=== PATIENT | female | born 1965 | race Caucasian/White ===

== ENCOUNTER 2020-12-28 16:00 | Emergency (ER) | payer OTHER ==
[2020-12-28 17:10] LABS: BASOPHIL 0.6 % (0-2); EOSINOPHIL 0.8 % (0-5); HGB 13.2 g/dl (12.5-16.0); LYMPHOCYTE 15.6 % (15-48); MCH 29.5 pg (25.0-31.0); MCHC 33.8 g/dL (32.0-36.0); MCV 87.2 fL (78.0-100.0); MPV 9.5 fL (6.0-9.5); NEUTROPHIL 74.5 % (41-80); NRBC 0; PLT 275 K/uL (150-400); RBC 4.47 M/uL (4.20-5.40); RDW 13.6 % (11.5-14.0); WBC 12.9 K/uL (4.0-10.5)
[2020-12-28 17:34] LABS: ALBUMIN 3.6 g/dL (3.4-5.0); BILIRUBIN - TOTAL 0.8 mg/dL (0.2-1.0); BUN/CREAT RATIO (CALC) 20.1 RATIO; CREATININE 1.59 mg/dL (0.51-0.95); GLOBULIN (CALCULATION) 4.3 g/dL; POTASSIUM 4.2 mmol/L (3.5-5.1); PRO-BNP 645 pg/mL (<125); TOTAL PROTEIN 7.9 g/dL (6.4-8.2)
[2020-12-28] MEDS ORDERED: AZITHROMYCIN250 MG PO (18:49)
[2020-12-28] MEDS ORDERED: MEDROL 4MG DOSEP4 MG PO (18:49)
== END 2020-12-28 19:04 | disposition home or self-care (01) ==
LOC: FER 16:00
PROVIDERS: Emergency Medicine
DX: J40 Bronchitis, not specified as acute or chronic (principal); Z20.822 Contact with and (suspected) exposure to COVID-19; I10 Essential (primary) hypertension; E03.9 Hypothyroidism, unspecified; Z88.0 Allergy status to penicillin; Z90.49 Acquired absence of other specified parts of digestive tract
CPT/HCPCS: 36415; 71045; 80053; 83880; 84484; 85025; 85379; 93005; U0002